=== PATIENT | male | born 1960 | race Caucasian/White ===

== ENCOUNTER → 2017-01-27 | Outpatient (CLI) | payer BC ==
--- NOTE | 2017-01-27 16:12 | DIAGNOSTIC IMAGING REPORT ---
RIGHT KNEE 2 VIEWS CLINICAL HISTORY: RIGHT KNEE PAIN COMPARISON: 03/26/2012 DISCUSSION: There are postsurgical changes are prior ACL repair. No acute fractures are visualized. There is irregularity the lateral tibial plateau which appears chronic. 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 There is a small joint effusion. IMPRESSION: 1. Postsurgical changes are prior ACL repair 2. No acute fractures 3. Slight progression in the degenerative changes most pronounced at the level of the patellofemoral joint 4. Small joint effusion Electronically signed by: Randy Felix M.D. 01/27/2017 4:10 PM Dictated Date/Time: 01/27/2017 4:09 PM
== END | disposition home or self-care (01) ==
LOC: C.RAD1850 15:33
PROVIDERS: ATTEND Family Medicine
DX: M25.561 Pain in right knee (principal)

== ENCOUNTER → 2017-02-02 | Outpatient (CLI) | payer BC | END | disposition home or self-care (01) | LOC: C.RDSM 13:40 | PROVIDERS: ATTEND Physical Medicine & Rehabilitation Sports Medicine | DX: M25.561 Pain in right knee (principal) ==